=== PATIENT | female | born 1955 | race Caucasian/White ===

== ENCOUNTER 2016-10-23 12:14 | Emergency (ER) | payer SELFPAY ==
[2016-10-23 13:11] VITALS: BP 124/89; PULSE 96; RESP 14; TEMP 97.7; O2SAT 96
[2016-10-23] MEDS ORDERED: PROPARACAINE 0.5% 15 ML OPHT DROP ONE (13:12)
[2016-10-23] MEDS ORDERED: PROPARACAINE 0.5% 15 ML OPHT DROP LEFTEYE ONE (13:20)
--- NOTE | 2016-10-23 14:11 | UCPHY ---
H & P Time Seen by Provider: 10/23/16 13:51 Patient Type: New HPI/ROS: This patient has a irritated left eye for 2 days. She thinks she may have had something in it wonders if there is a foreign body. She reports some mild blurred vision on the same side. She does recall any trauma to the area. No exacerbating or alleviating factors are noted. ROS: No right eye symptoms. No facial skin lesions. No generalized headache. 7 point ROS is otherwise negative Past Medical/Surgical History: Otherwise healthy Smoking Status: Current every day smoker Physical Exam: Physical Exam Vital signs are normal. General: No acute distress Eyes: Pupils equal and react to light. Extraocular motions are intact. Left eye conjunctival injection is present. On slit-lamp exam after proparacaine anesthesia there is evidence of large corneal abrasion approximately 3 mm x 3 mm at 7 o'clock just off midline of cornea. No foreign bodies are noted. Lids and lashes are normal. Right eye exam is normal Lungs: No respiratory distress. Cardiac: Brisk capillary refill is intact throughout. Skin: No rash or pallor. Neuro: Alert and oriented x3 with no sensorimotor deficits. Constitutional: Initial Vital Signs Temperature (C) 36.5 C 10/23/16 13:08 Heart Rate 96 10/23/16 13:08 Respiratory Rate 14 10/23/16 13:08 Blood Pressure 124/89 H 10/23/16 13:08 O2 Sat (%) 96 10/23/16 13:08 O2 Delivery Mode Room Air Allergies/Adverse Reactions: No Known Allergies Allergy (Unverified 10/23/16 13:08) Home Medications: Medication Instructions Recorded Ofloxacin 0.3% [Ocuflox 0.3% (RX)] 2 drops EACHEYE Q1 #1 btl 10/23/16 Medical Decision Making ED Course/Re-evaluation: Corneal abrasion. I counseled patient regarding this. Given the size and location of the cornea injury is suggested she follow up with Ophthalmology for recheck. - Data Points Medications Given: Discontinued Medications Proparacaine HCl (Alcaine 0.5%) 1 drops LEFTEYE ONCE ONE Stop: 10/23/16 13:21 Last Admin: 10/23/16 13:22 Dose: 4 drop Departure - Departure Disposition: Home, Routine, Self-Care Clinical Impression: Corneal abrasion Qualifiers: Encounter type: initial encounter Laterality: left Qualified Code(s): S05.02XA - Injury of conjunctiva and corneal abrasion without foreign body, left eye, initial encounter Condition: Good Instructions: Corneal Abrasion (ED) Additional Instructions: Diagnosis: Corneal abrasion Plan: Ocuflox antibiotic drops Ibuprofen and Tylenol for pain as needed. 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 Referrals: Jaylene Casiano MD [Primary Care Provider] - As per Instructions Prescriptions: Ofloxacin 0.3% [Ocuflox 0.3% (RX)] 2 drops EACHEYE Q1 #1 btl - PQRS PQRS Measurement: NA
== END 2016-10-23 14:17 | disposition home or self-care (01) ==
LOC: CED 12:14
PROC: 08J1XZZ Inspection of Left Eye, External Approach (ICD-10-PCS; principal; 2016-10-23)
DX: S05.02XA Injury of conjunctiva and corneal abrasion without foreign body, left eye, initial encounter (principal); Z72.0 Tobacco use
CPT/HCPCS: G0463-PO